=== PATIENT | male | born 1935 | race Caucasian/White ===

== ENCOUNTER → 2017-03-06 | Outpatient (CLI) | payer MEDICARE, OTHER ==
[~2017-03-06] MED LIST: ACET500T68 PO; AMLO-104 PO; AMLO2.5T74 PO; AMOX-559 PO; AMPH15CA PO; AMPH5CAP7 PO; ASPI-1471 PO; ATOR40TA69 PO; CEPH-13 PO; CEPH500C24 PO; CHOL10005 PO; CIP500 PO; CIPR-214 PO; CIPR-344 PO; DAPS25TA8 PO; DEXT15CA PO; DEXT15CA22 PO; DEXT15CA4 PO; DEXT5TAB PO; DEXT5TAB12 PO; FAM20 PO; FAMO20TA28 PO; HYDR-3083 PO; HYDR-317 PO; HYDR-385 PO; HYDR-389 PO; IBUP-1671 PO; IBUP-56 PO; IMIP10TA17 PO; IRON1CAP52 PO; LOR5/325 PO; METO-235 PO; METO-253 PO; METO25TA93 PO; MULT-865 PO; OMEG500C7 PO; OMEP-125 PO; OMEP-218 PO; PHENA200 PO; RIV10 PO; SIL50 PO; SIMV-54 PO; SPIR1TAB26 PO; SPIR25TA78 PO; TELM1TAB20 PO; TOLT2TAB4 PO; TOLT4CAP PO; TOLT4CAP13 PO; TRAM-420 PO; VALS1TAB79 PO; VALS1TAB80 PO; [UNRECOGNIZED DRUG - CODE] TOP
[2017-03-06 10:14] LABS: PLATELET COUNT, AUTOMATED 217 K/uL (150-450)
[2017-03-06 10:38] LABS: LDL CHOLESTEROL 81 mg/dl
== END ==
LOC: LAB 09:01
PROVIDERS: ATTEND Internal Medicine
DX: Z12.5 Encounter for screening for malignant neoplasm of prostate (principal); I25.10 Atherosclerotic heart disease of native coronary artery without angina pectoris; E78.5 Hyperlipidemia, unspecified; E78.4 Other hyperlipidemia; I10 Essential (primary) hypertension
CPT/HCPCS: 36415; 81001; 84443; 84550; 85025; G0103; 82040; 82247; 82310; 82374; 82435; 82465; 82565; 82947; 83718; 84075; 84132; 84153; 84155; 84295; 84450; 84460; 84478; 84520

== ENCOUNTER 2017-09-28 23:10 | Emergency (ER) | payer MEDICARE, OTHER ==
[~2017-09-28 23:10] MED LIST changes: +CLOB15CR22 TP; +LOSA100T67 PO; +SILD100T59 PO; -SPIR25TA78 PO; +SPIR25TA80 PO; +VALS320T5 PO
--- NOTE | 2017-09-28 23:18 | ER Report ---
History and Physical Time Seen By : 23:17 HPI/ROS CHIEF COMPLAINT: nosebleed HISTORY OF PRESENT ILLNESS: This is an 82 year old male. He has had a nosebleed for the last 2.5 hours. Has had about 4 nose bleeds this week. Is taking a daily aspirin. No other bleeding such as blood in bowel or urine. Has had some nose bleeds in the past, but not regular problems. Has had elevated blood pressure and recently started on Losartan. Takes metoprolol 25mg twice a day as well, but has not taken it today. No other blood thinners. No nasal injury. No shortness of breath Allergies: Coded Allergies: gluten (Verified Allergy, Mild, RASH, 09/28/17) Home Meds Active Scripts Losartan Potassium (LOSARTAN POTASSIUM) 100 Mg Tablet, 100 MG PO QDAY, #90 TAB 3 Refills Prov:NANDA GONZALEZ MD 09/15/17 Dextroamphetamine Sulfate (DEXTROAMPHETAMINE SULFATE) 5 Mg Tablet, 2 TAB PO TID Y for narcolepsy, #180 TAB 0 Refills refill on or after 10/13/2017 Prov:NANDA GONZALEZ MD 08/13/17 Dextroamphetamine Sulfate (DEXTROAMPHETAMINE SULFATE) 15 Mg Capsule.er, 1 TAB PO DAILY, #30 TAB 0 Refills refill on or after 10/13/2017 Prov:NANDA GONZALEZ MD 08/13/17 Sildenafil Citrate (VIAGRA) 100 Mg Tablet, 100 MG PO QDAY Y for before intercourse, #10 TAB 3 Refills Prov:NANDA GONZALEZ MD 08/13/17 Metoprolol Tartrate (METOPROLOL TARTRATE) 25 Mg Tablet, 1 TAB PO BID, #180 TAB 4 Refills Prov:NANDA GONZALEZ MD 06/22/17 Atorvastatin Calcium (ATORVASTATIN CALCIUM) 40 Mg Tablet, 1 TAB PO QDAY, #90 TAB 4 Refills TAKE ONE TABLET BY MOUTH ONCE A DAY AT BED TIME Prov:NANDA GONZALEZ MD 06/09/17 Omeprazole (OMEPRAZOLE) 20 Mg Capsule.dr, 1 CAP PO QAM, #90 CAP 4 Refills Prov:NANDA GONZALEZ MD 04/23/17 Reported Medications Clobetasol Propionate/Emoll (CLOBETASOL EMOLLIENT 0.05% CRM) 15 Gm Cream..g., 0 TP BID 05/27/17 Tolterodine Tartrate (DETROL LA) 4 Mg Cap.er.24h, 4 MG PO BID 05/27/17 Cholecalciferol (Vitamin D3) (VITAMIN D3) 1,000 Unit Tablet, 1000 UNIT PO QDAY, TAB 06/04/16 Famotidine (PEPCID) 20 Mg Tablet, 20 MG PO BID, #20 TAB 05/26/16 Imipramine Hcl (IMIPRAMINE HCL) 10 Mg Tablet, PO 05/12/16 Acetaminophen (TYLENOL EXTRA STRENGTH) 500 Mg Tablet, 2 TAB PO BID, TAB 07/31/15 Hill-3 Fatty Acids (FISH OIL) 500 Mg Capsule, 2400 MG PO QDAY, CAPSULE 07/31/15 Dapsone (DAPSONE) 25 Mg Tablet, 1 TAB PO DAILY, #90 TAB 3 Refills 09/05/14 Aspirin (ASPIR 81) 81 Mg Tablet.dr, 1 TAB PO QDAY, TAB 10/18/13 Multivitamin (DAILY MULTIPLE VITAMIN) 1 Each Tablet, 1 CAP PO DAILY 10/18/13 Reviewed Nurses Notes: Yes Hx Smoking: No Smoking Status: Never Smoker Hx Substance Use Disorder: No Hx Alcohol Use: No Constitutional Vital Sign - Last 24 Hours 09/28/17 09/28/17 09/28/17 09/28/17 23:10 23:15 23:17 23:25 Temp 97.6 Pulse ??? 73 74 Resp 16 B/P (MAP) 189/116 189/116 (140) Pulse Ox 91 90 O2 Delivery Room Air 09/28/17 09/28/17 09/28/17 09/29/17 23:30 23:40 23:55 00:00 Pulse 82 ??? B/P (MAP) 155/103 (120) 150/96 (114) 138/85 (102) Pulse Ox 93 85 09/29/17 09/29/17 00:10 00:14 Pulse ? Physical Exam General Appearance: Alert, no distress. Eyes: Pupils equal and round no pallor or injection. ENT: Mucous membranes are moist. Oral mucosa is normal in appearance. Posterior oropharynx has blood draining post nasal. nasal mucosa with bleeding from the left nasal passage, anterior septum. Skin: No bruising. DIFFERENTIAL DIAGNOSIS: After history and physical exam differential diagnosis was considered for epistaxis. Medical Decision Making Data Points Result Diagram: 09/28/17234909/28/172349 Laboratory Hematology Test 09/28/17 23:50 Red Blood Count 5.45 M/uL (4.00-5.60) Mean Corpuscular Volume 85.2 fL (80.0-96.0) Mean Corpuscular Hemoglobin 28.9 pg (26.0-33.0) Mean Corpuscular Hemoglobin Concent 34.0 g/dL (32.0-36.0) Red Cell Distribution Width 13.3 % (11.5-14.5) Mean Platelet Volume 8.0 fL (7.2-11.1) Neutrophils (%) (Auto) 60.7 % (39.4-72.5) Lymphocytes (%) (Auto) 24.4 % (17.6-49.6) Monocytes (%) (Auto) 10.5 % (4.1-12.4) Eosinophils (%) (Auto) 3.0 % (0.4-6.7) Basophils (%) (Auto) 1.4 % (0.3-1.4) Nucleated RBC Relative Count (auto) 0.0 /100WBC Neutrophils # (Auto) 3.5 K/uL (2.0-7.4) Lymphocytes # (Auto) 1.4 K/uL (1.3-3.6) Monocytes # (Auto) 0.6 K/uL (0.3-1.0) Eosinophils # (Auto) 0.2 K/uL (0.0-0.5) Basophils # (Auto) 0.1 K/uL (0.0-0.1) Nucleated RBC Absolute Count (auto) 0.00 K/uL Prothrombin Time 13.0 seconds (12.0-14.4) Prothromb Time International Ratio 0.98 Activated Partial Thromboplast Time 29 seconds (23-35) Sodium Level 142 mmol/L (137-145) Potassium Level 3.8 mmol/L (3.5-5.0) Chloride Level 104 mmol/L (98-107) Carbon Dioxide Level 28 mmol/L (22-30) Blood Urea Nitrogen 24 mg/dl (9-21) Creatinine 1.10 mg/dl (0.66-1.25) Glomerular Filtration Rate Calc > 60.0 Random Glucose 114 mg/dl (75-110) Calcium Level 9.0 mg/dl (8.4-10.2) Total Bilirubin 0.6 mg/dl (0.2-1.3) Aspartate Amino Transf (AST/SGOT) 25 U/L (0-35) Alanine Aminotransferase (ALT/SGPT) 29 U/L (0-56) Alkaline Phosphatase 55 U/L (0-126) Total Protein 6.6 g/dl (6.3-8.2) Albumin 4.0 g/dl (3.5-5.0) Chemistry Test 09/28/17 23:50 White Blood Count 5.7 k/uL (4.5-11.0) Red Blood Count 5.45 M/uL (4.00-5.60) Hemoglobin 15.8 g/dL (14.0-18.0) Hematocrit 46.4 % (42.0-52.0) Mean Corpuscular Volume 85.2 fL (80.0-96.0) Mean Corpuscular Hemoglobin 28.9 pg (26.0-33.0) Mean Corpuscular Hemoglobin Concent 34.0 g/dL (32.0-36.0) Red Cell Distribution Width 13.3 % (11.5-14.5) Platelet Count 182 K/uL (150-450) Mean Platelet Volume 8.0 fL (7.2-11.1) Neutrophils (%) (Auto) 60.7 % (39.4-72.5) Lymphocytes (%) (Auto) 24.4 % (17.6-49.6) Monocytes (%) (Auto) 10.5 % (4.1-12.4) Eosinophils (%) (Auto) 3.0 % (0.4-6.7) Basophils (%) (Auto) 1.4 % (0.3-1.4) Nucleated RBC Relative Count (auto) 0.0 /100WBC Neutrophils # (Auto) 3.5 K/uL (2.0-7.4) Lymphocytes # (Auto) 1.4 K/uL (1.3-3.6) Monocytes # (Auto) 0.6 K/uL (0.3-1.0) Eosinophils # (Auto) 0.2 K/uL (0.0-0.5) Basophils # (Auto) 0.1 K/uL (0.0-0.1) Nucleated RBC Absolute Count (auto) 0.00 K/uL Prothrombin Time 13.0 seconds (12.0-14.4) Prothromb Time International Ratio 0.98 Activated Partial Thromboplast Time 29 seconds (23-35) Glomerular Filtration Rate Calc > 60.0 Calcium Level 9.0 mg/dl (8.4-10.2) Total Bilirubin 0.6 mg/dl (0.2-1.3) Aspartate Amino Transf (AST/SGOT) 25 U/L (0-35) Alanine Aminotransferase (ALT/SGPT) 29 U/L (0-56) Alkaline Phosphatase 55 U/L (0-126) Total Protein 6.6 g/dl (6.3-8.2) Albumin 4.0 g/dl (3.5-5.0) Coagulation Test 09/28/17 23:50 Prothrombin Time 13.0 seconds Prothromb Time International Ratio 0.98 Activated Partial Thromboplast Time 29 seconds ED Course/Re-evaluation Clinical Indication for ER IV: IV Access ED Course Blood pressure is elevated significantly. Given Metoprolol 5mg IV then his normal 25mg oral dose. Blood pressure has come down. Procedure: Epistaxis control. Initially treated with compression. The patient had continued bleeding. We then used Neosynephrine nasal spray to try and acheive some vasoconstriction to slow or stop the bleeding. We also used some atomized tranexemic acid in the nasal passage. The nose was re-clamped and we waited to re-evaluate. Re-evaluation revealed slowing, but continued of the bleeding. The was identified and was on the anterior nasal septum. Rapid rhino 5.5cm after atomized TXA again. Following the procedure the patient was re-examined and the bleeding was well controlled. The patient tolerated the procedure well. Decision to Disposition Date: Sep 29, 2017 Decision to Disposition Time: 00:45 Depart Departure Latest Vital Signs Vital Signs Date Time Temp Pulse Resp B/P (MAP) Pulse Ox O2 Delivery O2 Flow Rate FiO2 09/29/17 00:14 ??? 09/29/17 00:00 138/85 (102) 09/28/17 23:55 85 09/28/17 23:15 97.6 16 Room Air Impression: Primary Impression: Epistaxis Condition: Improved Disposition: HOME OR SELF-CARE Referrals: NANDA GONZALEZ MD (PCP) Patient Instructions: Nosebleed (ED) Additional Instructions: Keep the nasal packing in for the next 24-[address] Carrasco's office for an appointment. Call in the morning. CHER AGRAWAL MD Sep 28, 2017 23:18
[2017-09-28] MEDS ORDERED: TRANEXAMIC AC 1000 MG/10ML SDV 1,000 MG in NS(*) 0.9% 50 ML BAG 50 ML ONE (23:30)
[2017-09-28] MEDS ORDERED: METOPROLOL TART 5 MG/5 ML VIAL IVP ONE (23:30)
[2017-09-28] MEDS ORDERED: ENT KIT ONE (23:30)
[2017-09-28] MEDS ORDERED: METOPROLOL TART 50 MG TAB PO ONE (23:30)
[2017-09-29] VITALS: BP 138/85
[2017-09-29 00:04] LABS: PLATELET COUNT, AUTOMATED 182 K/uL (150-450)
[2017-09-29 00:14] LABS: INR 0.98
[2017-09-29] MEDS ORDERED: PHENYLEPHRINE 0.5% 15 ML BTL ONE (01:11)
[2017-09-29] MEDS ORDERED: LOSA100T67 PO (11:42)
== END 2017-09-29 01:02 | disposition home or self-care (01) ==
LOC: ER 23:19
DX: R04.0 Epistaxis (principal); Z79.82 Long term (current) use of aspirin; Z79.899 Other long term (current) drug therapy
CPT/HCPCS: 30901; 85025; 85610; 85730; 96374; 99283; A9270; J3490; 82040; 82247; 82310; 82374; 82435; 82565; 82947; 84075; 84132; 84155; 84295; 84450; 84460; 84520

== ENCOUNTER → 2018-02-03 | Outpatient (CLI) | payer MEDICARE, OTHER ==
[~2018-02-03] MED LIST changes: -AMLO2.5T74 PO; +AMLO2.5T76 PO; -LOSA100T67 PO; +LOSA100T69 PO
[2018-02-03 09:32] LABS: LDL CHOLESTEROL 69 mg/dl
== END ==
LOC: LAB 08:09
DX: Z51.81 Encounter for therapeutic drug level monitoring (principal); N14.1 Nephropathy induced by other drugs, medicaments and biological substances; R97.20 Elevated prostate specific antigen [PSA]; E78.2 Mixed hyperlipidemia; R53.83 Other fatigue
CPT/HCPCS: 36415; 82040; 82247; 82248; 82310; 82374; 82435; 82465; 82565; 82947; 83718; 84075; 84132; 84153; 84155; 84295; 84443; 84450; 84460; 84478; 84520; 85027

== ENCOUNTER → 2018-02-20 | Outpatient (CLI) | payer MEDICARE, OTHER ==
[~2018-02-20] MED LIST changes: -LOSA100T69 PO; +LOSA100T75 PO
== END ==
LOC: LAB 14:00
DX: N30.01 Acute cystitis with hematuria (principal)
CPT/HCPCS: 81001; 87088

== ENCOUNTER → 2018-03-11 | Outpatient (CLI) | payer MEDICARE, OTHER ==
[~2018-03-11] MED LIST changes: -AMLO2.5T76 PO; +AMLO2.5T78 PO; +DOCU-416 PO
== END ==
LOC: US 06:55
PROVIDERS: ATTEND Internal Medicine
DX: R01.1 Cardiac murmur, unspecified (principal); I35.1 Nonrheumatic aortic (valve) insufficiency
CPT/HCPCS: 93306

== ENCOUNTER → 2018-04-02 | Outpatient (CLI) | payer MEDICARE, OTHER | LOC: LAB 11:18 | DX: R97.20 Elevated prostate specific antigen [PSA] (principal) | CPT/HCPCS: 36415; 84153 ==

== ENCOUNTER → 2018-04-28 | Outpatient (CLI) | payer MEDICARE, OTHER ==
[~2018-04-28] MED LIST changes: +DEXT5CAP3 PO; +HYDR-2966 PO
--- NOTE | 2018-04-28 09:15 | EKG ---
FACILITY: [facility] PATIENT NAME: VAN RUEDA : [id number] MR: [id number] V: [id number] EXAM DATE: ORDERING PHYSICIAN: NANDA GONZALEZ TECHNOLOGIST: LANCE La Reason : PRE-OP Blood Pressure : / mmHG Vent. Rate : 066 BPM Atrial Rate : 066 BPM P-R Int : 182 ms QRS Dur : 160 ms QT Int : 452 ms P-R-T Axes : 072 033 063 degrees QTc Int : 473 ms Sinus rhythm with occasional PACs Right bundle branch block Abnormal ECG Confirmed by TALIA GALLARDO ([id number]) on 04/28/2018 5:17:43 PM Referred By: MARÍA Confirmed By:TALIA GALLARDO
== END ==
LOC: LAB 08:59
PROVIDERS: ATTEND Internal Medicine
DX: Z01.810 Encounter for preprocedural cardiovascular examination (principal); R94.31 Abnormal electrocardiogram [ECG] [EKG]
CPT/HCPCS: 36415; 82040; 82247; 82310; 82374; 82435; 82565; 82947; 84075; 84132; 84155; 84295; 84450; 84460; 84520; 85025

== ENCOUNTER → 2018-06-10 | Outpatient (CLI) | payer MEDICARE, OTHER ==
[2018-06-10 11:25] LABS: PLATELET COUNT, AUTOMATED 216 K/uL (150-450)
== END ==
LOC: LAB 11:04
PROVIDERS: ATTEND Dermatology MOHS-Micrographic Surgery
DX: L13.0 Dermatitis herpetiformis (principal); Z79.899 Other long term (current) drug therapy
CPT/HCPCS: 36415; 85025

== ENCOUNTER → 2018-06-10 | Outpatient (CLI) | payer MEDICARE, OTHER | LOC: LAB 11:09 | DX: R97.20 Elevated prostate specific antigen [PSA] (principal) | CPT/HCPCS: 84153 ==

== ENCOUNTER → 2018-07-20 | Outpatient (CLI) | payer MEDICARE, OTHER ==
--- NOTE | 2018-07-20 09:10 | EKG ---
FACILITY: [facility] - [place] PATIENT NAME: VAN RUEDA : [id number] MR: [id number] V: [id number] EXAM DATE: ORDERING PHYSICIAN: NANDA GONZALEZ TECHNOLOGIST: SYLVIA Test Reason : CAD Blood Pressure : / mmHG Vent. 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
== END ==
LOC: RESP 08:45
PROVIDERS: ATTEND Internal Medicine
DX: Z02.9 Encounter for administrative examinations, unspecified (principal)

== ENCOUNTER → 2018-09-09 | Outpatient (CLI) | payer MEDICARE, OTHER ==
[~2018-09-09] MED LIST changes: -OMEP-125 PO; +OMEP-126 PO
== END ==
LOC: LAB 10:52
DX: R97.20 Elevated prostate specific antigen [PSA] (principal)
CPT/HCPCS: 36415; 84153

== ENCOUNTER → 2018-09-09 | Outpatient (CLI) | payer MEDICARE, OTHER | LOC: LAB 11:29 | PROVIDERS: ATTEND Internal Medicine Cardiovascular Disease | DX: I35.0 Nonrheumatic aortic (valve) stenosis (principal) | CPT/HCPCS: 82310; 82374; 82435; 82565; 82947; 84132; 84295; 84520; 85027 ==

== ENCOUNTER → 2018-09-27 | Outpatient (CLI) | payer MEDICARE, OTHER ==
[~2018-09-27] MED LIST changes: +GABA-547 PO; +GADOBENATE 529MG/1ML 15ML VIAL IVP ONE
--- NOTE | 2018-09-27 11:32 | RADIOLOGY IMAGING REPORT ---
FACILITY: [facility] - [place] PATIENT NAME: Catalino Mahmood : 1935 MR: [id number] V: [id number] EXAM DATE: ORDERING PHYSICIAN: NANDA GONZALEZ TECHNOLOGIST: Location: [facility] - [place] Patient: Catalino Mahmood : 1935 Visit/Account:[id number] Date of Sevice: 09/27/2018 Examination: MR brain without and with contrast History: Headache Comparison: None Technique: Multiplane MR imaging was performed through the brain without and with contrast. 15 cc IV multihance was administered. Findings: Diffusion: None Ventricles: Normal Midline shift: None Extraxial fluid: None Midline craniocervical structures: Normal Parenchyma: Two punctate foci of left temporal lobe hemosiderin staining in keeping with residua of p rior microhemorrhage. Mild patchy high signal in the kristal. Partially confluent periventricular whit e matter high signal and multiple small white matter high signal patches. Prominence of the basal ga nglia perivascular spaces. Enhancement: No pathologic enhancement Vascular flow voids: Normal Orbits and paranasal sinuses: Cataract postsurgical change. Suggestion of a chronic left orbital tri or fracture deformity. Other: Trace bilateral mastoid fluid. Impression: 1. No acute finding. 2. Moderate chronic small vessel ischemic change. 3. A few foci of parenchymal hemosiderin staining in keeping with residua of prior microhemorrhage. 4. Suggestion of a chronic left orbital floor fracture deformity. 5. Otherwise unremarkable brain MR without and with contrast. Report Dictated By: Sarbjit Rivero MD at 09/27/2018 11:18 AM Report E-Signed By: Sarbjit Rivero MD at 09/27/2018 11:24 AM WSN:[id number]
== END ==
LOC: MRI 00:56
PROVIDERS: ATTEND Internal Medicine
DX: R51 Headache (principal)
CPT/HCPCS: 70553; A9577

== ENCOUNTER 2018-10-11 04:02 | Day surgery (SDC) | payer MEDICARE, OTHER ==
[2018-10-08 09:45] LABS: PLATELET COUNT, AUTOMATED 209 K/uL (150-450)
[~2018-10-11] VITALS: Ht 177.8 cm; Wt 83.5 kg
[2018-10-11] VITALS (8 sets, daily range): BP systolic 117–166; BP diastolic 68–103
[~2018-10-11 04:02] MED LIST changes: -GADOBENATE 529MG/1ML 15ML VIAL IVP ONE
[2018-10-11] MEDS ORDERED: fentaNYL CITR 100 MCG/2 ML AMP ONE (07:03)
[2018-10-11] MEDS ORDERED: KETAMINE HCL-NS 50 MG/5 ML SYR ONE (07:04)
[2018-10-11] MEDS ORDERED: ETOMIDATE 20 MG/10 ML VIAL ONE (07:04)
[2018-10-11] MEDS ORDERED: LIDOCAINE MPF 1% 5 ML VIAL ONE (07:05)
[2018-10-11] MEDS ORDERED: MIDAZOLAM 2 MG/2 ML VIAL ONE (07:33)
--- NOTE | 2018-10-11 08:30 | NUR ---
Patient resting. arouses upon call. states he feels good just sleepy. will let patient rest and continue to monitor.
[2018-10-11] MEDS ORDERED: GENTAMICIN(*) 80 MG/2 ML VIAL 160 MG in NS(*) 0.9% 100 ML BAG 100 ML IVPB ONE (08:50)
[2018-10-11] MEDS ORDERED: MIDAZOLAM 2 MG/2 ML VIAL IVP PRN (08:50)
[2018-10-11] MEDS ORDERED: cefTRIAXone(*) 1 GM VIAL 1 GM in NS(*) 0.9% 100 ML MINI-BAG 100 ML IVPB ONE (08:50)
[2018-10-11] MEDS ORDERED: NORMOSOL R SOLN(*) 1000 ML BAG 1,000 ML IV PRN (08:50)
[2018-10-11] MEDS ORDERED: LIDOCAINE/SOD BICARB 8.4% SYR ID ONE (08:50)
--- NOTE | 2018-10-11 08:50 | NUR ---
Patient is becoming more alert and oriented. calling now. will continue to assess and monitor.
--- NOTE | 2018-10-11 08:55 | NUR ---
Patient supplemental oxygen decreased to 2L/min via NC. Tolerating well. O2 saturation maintaining at 96%, with on compensation from respirations or pulse. will continue to monitor and assess
--- NOTE | 2018-10-11 09:14 | NUR ---
Patient talking. states he has no pain at this time. is just still sleepy. will continue to monitor and assess.
[2018-10-11] MEDS ORDERED: ACET-3017 PO (09:24)
[2018-10-11] MEDS ORDERED: FAMO20TA28 PO (09:25)
[2018-10-11] MEDS ORDERED: IBUP800T37 PO (09:26)
[2018-10-11] MEDS ORDERED: LEVO500T83 PO (09:28)
--- NOTE | 2018-10-11 09:35 | NUR ---
Patient supplemental oxygen removed. tolerating well. O2 saturation maintaining at 94%. pulse constant at 61 bpm, respirations steady at 20 resp/min. patient states no SOB or dizziness at this time. will continue to monitor.
--- NOTE | 2018-10-11 09:45 | NUR ---
Patient up to the bathroom. able to void bladder. minimal assistance needed when ambulating. no unsteadiness or dizziness noted when walking.
--- NOTE | 2018-10-11 09:55 | NUR ---
discharge instructions given to patient, states understanding.
--- NOTE | 2018-10-11 10:04 | RADIOLOGY IMAGING REPORT ---
FACILITY: [facility] - [place], [place] PATIENT NAME: Catalino Mahmood : 1935 MR: [id number] V: [id number] EXAM DATE: ORDERING PHYSICIAN: RHODA STYLES TECHNOLOGIST: Location: [facility] [place] Patient: Catalino Mahmood : 1935 Visit/Account:[id number] Date of Sevice: 10/11/2018 Exam type: PROSTATE BIOPSY History: Elevated PSA Comparison: None. Findings: Prostate biopsy was performed by Dr. Styles. Sonographic assistance was provided. Please see Dr. Jignesh gross's report for complete details IMPRESSION: 1. As above Report Dictated By: Debra Ding MD at 10/11/2018 9:54 AM Report E-Signed By: Debra Ding MD at 10/11/2018 9:54 AM WSN:[email or web address]
--- NOTE | 2018-10-11 14:02 | OPERATIVE REPORT 1 ---
EVENT DATE: October 11, 2018 SURGEON: Adrián Moy MD ANESTHESIOLOGIST: Pedro Yeh MD ANESTHESIA: General. PREOPERATIVE DIAGNOSIS Elevated prostate specific antigen, etiology ? POSTOPERATIVE DIAGNOSES 1. Elevated prostate specific antigen, etiology ? 2. Diffuse calculus prostatitis almost throughout the prostate gland. PROCEDURES PERFORMED 1. Prostate ultrasound. 2. Transrectal prostate biopsies. 3. Cystourethroscopy. 4. Hydrodistention of the bladder. DESCRIPTION OF PROCEDURE Under general anesthetic, the patient was prepped and draped in the extended lithotomy position. The transrectal probe was introduced transrectally. The bladder was scanned, and showed diffuse scattered stippled calcifications almost throughout the prostate. No clear hyperechoic areas. Prostate measured to a total of approximately 26 grams. Biopsies were obtained from the base,, mid and apical areas of the prostate bilaterally for a total of 12 samples. At conclusion of the ultrasound biopsy, the probe was removed. Digital examination revealed minimal blood in the rectal ampulla. The patient was prepped and draped. The 17-Panendoscope was admitted through the urethra into the bladder. The urethra was normal. The cuff was in a closed position. The urethral tissue appeared to be healthy. The cuff was opened. The 17-Panendoscope admitted through the area through the prostate into the bladder. The bladder showed 4+ trabeculation. The cuff was deactivated in the open position. The bladder filled under gravity flow as measured to a total of approximately 600 cc. The Patient was feeling significant bladder discomfort as he was moving under MAC anesthetic slightly. The bladder was drained and measured to a total of approximately 600 cc. Reinspection of the bladder showed no glomerulations. The bladder was drained. There appeared to be no damage of the urethra, in the area of the cuff. The AMS 800 was reactivated after conclusion of the procedure. The cuff cycled satisfactorily. Visualization of the urethra showed the urethra to be coapting in the area of the cuff in the bulbous urethra. The scope was withdrawn. Patient tolerated the procedure satisfactorily and returned to the recovery room in satisfactory condition. This is an 84-year old white male complaining of elevated prostate specific antigen. The patient requested evaluation. That has been accomplished. See operative note for details. Patient will be discharged home on Levaquin, Pepcid, Motrin and Tylenol #3 therapy in addition to his usual medications. Plan followup this coming Thursday in the office. He is to call for an appointment. LEONIDES
== END 2018-10-11 10:10 | disposition home or self-care (01) ==
LOC: OR 04:02
DX: R97.20 Elevated prostate specific antigen [PSA] (principal); N41.9 Inflammatory disease of prostate, unspecified
CPT/HCPCS: 36415; 55700; 76942; 85025; 88305; 88344; J0696; J1580; J2250; J3490; J7050; 82310; 82374; 82435; 82565; 82947; 84132; 84295; 84520; J2001; J3010

== ENCOUNTER → 2018-10-19 | Outpatient (CLI) | payer MEDICARE, OTHER ==
[~2018-10-19] MED LIST changes: +ACET-3017 PO; +IBUP800T37 PO; +IOPAMIDOL 76% 100 ML INFUS BTL 100 ML ONE; +LEVO500T83 PO
--- NOTE | 2018-10-19 09:47 | RADIOLOGY IMAGING REPORT ---
FACILITY: [facility] PATIENT NAME: Catalino Mahmood : 1935 MR: [id number] V: [id number] EXAM DATE: ORDERING PHYSICIAN: RHODA STYLES TECHNOLOGIST: Location: [facility] Patient: Catalino Mahmood : 1935 Visit/Account:[id number] Date of Sevice: 10/19/2018 CT ABDOMEN PELVIS W CONTRAST HISTORY: Prostate cancer TECHNIQUE: Axial images acquired through the abdomen/pelvis following intravenous administration of c ontrast.. Coronal and sagittal reformatting also performed.Dose Lowering Technique One of the following dose optimization techniques was utilized in the performance of this exam: Autom ated exposure control; adjustment of the mA and/or kV according to the patient's size; or use of an i terative reconstruction technique. Specific details can be referenced in the facility's radiology C T exam operational policy. CONTRAST: 75 mL Isovue-370 COMPARISON: March 21, 2010 FINDINGS: Visualized lung bases: Mild bibasilar scarring Hepatobiliary: Tiny subcentimeter hypodensities in the liver may represent cysts although are too sm all to characterize. There are several coarse calcifications in the posterior lateral right lobe Spleen: Negative. Adrenals: Negative. Pancreas: Negative. Kidneys ureters and bladder: Bilateral renal cysts and parapelvic cysts have increased in size larges t cyst on the right now measures 4.9 cm projects from the upper pole previously measuring 2.8 cm. Th e largest cyst in the left kidney measures 8 cm projects from the lower pole and previously measured 3.3 cm. There is mild bladder wall thickening. No evidence of hydronephrosis Genitalia: There is a TURP defect. Prostate gland is mildly prominent containing coarse calcificati ons. Is a penile prosthesis in place GI: There Is diverticulosis throughout the left-sided colon although no CT evidence of acute divertic ulitis Vessels/spaces/nodes: Moderate to severe atherosclerotic calcifications of the abdominal aorta and b ranch vessels. There is ectasia of the common and external iliac arteries bilaterally Bones/soft tissues: There is a levoconvex scoliosis of lumbar spine with extensive degenerative shah ges. . There is a small right inguinal hernia containing fat. There is a complex fluid collection just anterior to the right hip joint Additional findings: None pertinent. IMPRESSION: Bilateral renal cysts and parapelvic cysts have increased in size when compared the prior study Mild bladder wall thickening TURP defect in the prostate gland which is mildly prominent Diverticulosis without the left-sided the colon Additional chronic findings as described Report Dictated By: Debra Ding MD at 10/19/2018 8:14 AM Report E-Signed By: Debra Ding MD at 10/19/2018 9:38 AM WSN:[email or web address]
--- NOTE | 2018-10-19 13:37 | RADIOLOGY IMAGING REPORT ---
FACILITY: [facility] - [place] PATIENT NAME: Catalino Mahmood : 1935 MR: [id number] V: [id number] EXAM DATE: ORDERING PHYSICIAN: RHODA STYLES TECHNOLOGIST: [facility] Patient: Catalino Mahmood : 1935 Visit/Account:[id number] Date of Sevice: 10/19/2018 NM BONE SCAN COMPLETE HISTORY: Prostate cancer TECHNIQUE: 24.6 mCi technetium 99m HDP was injected intravenously. Delayed anterior and posterior wh ole body gamma camera images were obtained. Additional gamma camera images: Right left lateral skull COMPARISON: CT abdomen and pelvis performed today FINDINGS: Bone radiotracer activity: Extensive breast uptake is noted over the cervical spine which may be deg enerative in nature. There is an S-shaped scoliosis of the thoracal lumbar spine. Patchy areas of i sotope uptake seen in the thoracic and lumbar spine may also be degenerative in nature as the today's CT scan suggests. Several lucencies within the lower thoracic and lumbar vertebral bodies on the CT scan have the appearance suggestive of hemangiomas.. 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 Degenerative type uptake is noted ov er the shoulders the wrists the and ankles Extraosseous radiotracer activity: There is a large amount of extraosseous activity projecting just below the level of the pubic symphysis likely urine contamination. Renal and urinary collecting system activity: Unremarkable. IMPRESSION: Focal areas of isotope uptake within the cervical thoracic and lumbar spine may be degenerative in na ture. Today's CT scan did demonstrate several lucencies in the visualized lower thoracic spine and l umbar spine. 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
== END ==
LOC: CT 01:10
DX: N20.0 Calculus of kidney (principal); K57.30 Diverticulosis of large intestine without perforation or abscess without bleeding
CPT/HCPCS: 74177; 78306; A9503; Q9967